=== PATIENT | male | born 1985 | race Hispanic/Latino ===

== ENCOUNTER 2022-05-13 13:05 | Inpatient (IN) | payer OTHER ==
[~2022-05-13] VITALS: Ht 152.4 cm; Wt 59.0 kg
[2022-05-13 13:44] LABS: BASOPHILS % (AUTO) 0.4 % (0.0-5.0); EOSINOPHILS % (AUTO) 7.7 % (0.0-8.0); HEMATOCRIT 31.8 % (42-54); LYMPHOCYTES % (AUTO) 2.5 % (21.0-51.0); MEAN CORPUSCULAR HEMOGLOBIN 21.4 pg (27.0-33.0); MEAN CORPUSCULAR HGB CONC 30.5 g/dL (32.0-36.0); MEAN CORPUSCULAR VOLUME 70.2 fL (79-99); MONOCYTES % (AUTO) 2.3 % (3.0-13.0); NEUTROPHILS % (AUTO) 84.9 % (40.0-77.0); RED BLOOD CELL COUNT(AUTO) 4.53 MIL/uL (4.50-6.20); RED CELL DISTRIBUTION WIDTH 16.6 % (11.0-15.5); WHITE BLOOD COUNT (AUTO) 22.3 K/uL (4.8-10.8)
[2022-05-13 13:47] LABS: PLATELET COUNT (AUTO) 822 K/uL (130-400)
[2022-05-13 14:23] LABS: ALBUMIN 1.6 g/dL (3.5-5.0); CREATININE 0.7 mg/dL (0.5-1.5); POTASSIUM 3.7 mmol/L (3.5-5.1); TOTAL PROTEIN, SERUM 7.2 g/dL (6.0-8.3)
[2022-05-13] MEDS ORDERED: ZOSYN 3.375GM+NS 50ML 50 ML ONE (14:24)
[2022-05-13] MEDS ORDERED: 0.9%NACL 1000ML 1,000 ML IV ONE ×2 (14:24→14:30)
[2022-05-13] MEDS ORDERED: ZOSYN 3.375GM +NS 50ML IV ONE (14:30)
[2022-05-13 14:43] LABS: PLATELET MORPHOLOGY COMMENT INCREASED
[2022-05-13] MEDS ORDERED: ONDANSETRON 4MG INJ IVP PRN (15:00)
[2022-05-13] MEDS ORDERED: OSELTAMIVIR PHOSPHATE 75 MG CAP PO SCH (15:00)
[2022-05-13] MEDS: SOLU-MEDROL 125MG VIAL IVP SCH ×2 (15:36→20:36)
[2022-05-13 16:00] VITALS: BP 106/62
[2022-05-13 19:50] VITALS: BP 94/55
[2022-05-13 23:24] VITALS: BP 92/49
[2022-05-14] MEDS: 0.9%NACL 1000ML 1,000 ML IV SCH ×3 (01:00→21:00)
[2022-05-14] MEDS: SOLU-MEDROL 125MG VIAL IVP SCH ×4 (02:55→21:09)
[2022-05-14 03:40] VITALS: BP 102/57
[2022-05-14 08:00] VITALS: BP 90/68
[2022-05-14 11:05] VITALS: BP 99/58
[2022-05-14 15:05] VITALS: BP 109/71
[2022-05-14 20:00] VITALS: BP 114/64
== END 2022-05-15 01:28 | disposition short-term general hospital (02) | DRG 842 ==
LOC: EDH 13:05 → EDHIP 13:06 → 3BH 16:16
PROVIDERS: ADMIT Internal Medicine Hematology & Oncology; ATTEND Internal Medicine Hematology & Oncology
DX: C83.30 Diffuse large B-cell lymphoma, unspecified site (principal); Z20.822 Contact with and (suspected) exposure to COVID-19
CPT/HCPCS: 36415; 71045; 80053; 83605; 85025; 87040; 87635; 87804; G0378; J2543; J2930; J7030

== ENCOUNTER 2022-05-27 18:48 | Inpatient (IN) | payer OTHER ==
[~2022-05-27] VITALS: Ht 162.6 cm; Wt 55.6 kg
[2022-05-27] MEDS ORDERED: 0.9%NACL 1000ML 2,000 ML IV ONE (19:30)
[2022-05-27 20:00] LABS: BASOPHILS % (AUTO) 0.4 % (0.0-5.0); EOSINOPHILS % (AUTO) 4.8 % (0.0-8.0); HEMATOCRIT 26.6 % (42-54); LYMPHOCYTES % (AUTO) 6.5 % (21.0-51.0); MEAN CORPUSCULAR HEMOGLOBIN 22.5 pg (27.0-33.0); MEAN CORPUSCULAR HGB CONC 31.6 g/dL (32.0-36.0); MEAN CORPUSCULAR VOLUME 71.3 fL (79-99); MONOCYTES % (AUTO) 6.5 % (3.0-13.0); NEUTROPHILS % (AUTO) 81.4 % (40.0-77.0); PLATELET COUNT (AUTO) 486 K/uL (130-400); RED BLOOD CELL COUNT(AUTO) 3.73 MIL/uL (4.50-6.20); RED CELL DISTRIBUTION WIDTH 20.1 % (11.0-15.5); WHITE BLOOD COUNT (AUTO) 2.3 K/uL (4.8-10.8)
[2022-05-27 20:16] LABS: CREATININE 0.7 mg/dL (0.5-1.5); POTASSIUM 3.3 mmol/L (3.5-5.1)
[2022-05-27 20:20] LABS: ALBUMIN 1.8 g/dL (3.5-5.0); TOTAL PROTEIN, SERUM 6.1 g/dL (6.0-8.3)
[2022-05-27] MEDS ORDERED: CEFAZOLIN SODIUM 2 GM VIAL IVP SCH (20:30)
[2022-05-27] MEDS ORDERED: VANCOMYCIN 1G VIAL IVPB ONE (20:30)
[2022-05-27] MEDS ORDERED: CEFAZOLIN SODIUM 1 GM VIAL ONE (20:34)
[2022-05-27] MEDS ORDERED: KETOROLAC 30MG VIAL (30MG/ML) ONE (20:39)
[2022-05-27] MEDS ORDERED: VANCOMYCIN 1G/250ML KIT 250 ML IV ONE (21:00)
[2022-05-27] MEDS ORDERED: KETOROLAC 30MG VIAL (30MG/ML) IVP ONE (21:00)
[2022-05-27 21:17] LABS: BAND NEUTROPHILS % (MANUAL) 6 % (0-2); EOSINOPHILS % (MANUAL) 7 % (1-6); LYMPHOCYTES % (MANUAL) 4 % (22-44); MAN.DIFF COMMENT-IMPRESSION MANUAL DIFFERENTIAL; MONOCYTES % (MANUAL) 7 % (2-9); SEGMENTED NEUTROPHILS % 76 % (40-70)
[2022-05-27 21:18] LABS: PLATELET MORPHOLOGY COMMENT ADEQUATE
[2022-05-27 23:35] VITALS: BP 122/78
[2022-05-28] MEDS: 0.9%NACL 1000ML 1,000 ML IV SCH ×3 (00:51→20:56)
[2022-05-28 04:00] VITALS: BP 115/73
[2022-05-28] MEDS ORDERED: OMEP40CA21 PO (04:42)
[2022-05-28] MEDS ORDERED: PRED50TA2 PO (04:42)
[2022-05-28] MEDS: ZOSYN 3.375GM +NS 50ML IV SCH ×3 (05:12→20:57)
[2022-05-28] MEDS: ACETAMINOPHEN 325 MG TAB PO PRN ×2 (05:19→11:52)
[2022-05-28 08:00] VITALS: BP 106/71
[2022-05-28 12:00] VITALS: BP 108/77
[2022-05-28] MEDS ORDERED: TBO-FILGRASTIM 480 MCG/0.8 ML ML SQ SCH (12:30)
[2022-05-28 13:02] LABS: HEMATOCRIT 27.3 % (42-54); MEAN CORPUSCULAR HEMOGLOBIN 22.3 pg (27.0-33.0); MEAN CORPUSCULAR HGB CONC 30.8 g/dL (32.0-36.0); MEAN CORPUSCULAR VOLUME 72.6 fL (79-99); PLATELET COUNT (AUTO) 542 K/uL (130-400); RED BLOOD CELL COUNT(AUTO) 3.76 MIL/uL (4.50-6.20); RED CELL DISTRIBUTION WIDTH 20.5 % (11.0-15.5); WHITE BLOOD COUNT (AUTO) 1.7 K/uL (4.8-10.8)
[2022-05-28 13:51] LABS: EOSINOPHILS % (MANUAL) 10 % (1-6); LYMPHOCYTES % (MANUAL) 21 % (22-44); MAN.DIFF COMMENT-IMPRESSION MANUAL DIFFERENTIAL; MONOCYTES % (MANUAL) 10 % (2-9); SEGMENTED NEUTROPHILS % 59 % (40-70)
[2022-05-28 13:52] LABS: PLATELET MORPHOLOGY COMMENT INCREASED
[2022-05-28] MEDS: HYDROCODONE/ACETAMINOPHEN 5/325 MG TAB PO PRN (14:55)
[2022-05-28 16:00] VITALS: BP 96/61
[2022-05-28 20:16] VITALS: BP 132/77
[2022-05-28] MEDS ORDERED: VANCOMYCIN 1G/250ML KIT 250 ML IV SCH (22:00)
[2022-05-28] MEDS ORDERED: VANCOMYCIN KIT 1 GM/250 ML IV.KIT IV SCH (22:00)
[2022-05-29] VITALS: BP 96/54
[2022-05-29] MEDS: HYDROCODONE/ACETAMINOPHEN 5/325 MG TAB PO PRN (00:03)
[2022-05-29] MEDS: MORPHINE 2 MG SYG IVP PRN ×4 (00:26→14:03)
[2022-05-29 02:32] LABS: APPEARANCE,URINE CLEAR (CLEAR); BILIRUBIN,URINE NEGATIVE (NEGATIVE); COLOR,URINE COLORLESS (YELLOW); GLUCOSE, URINE (UA) NEGATIVE (NEGATIVE); KETONES,URINE NEGATIVE (NEGATIVE); LEUKOCYTE ESTERASE ,URINE NEGATIVE Leu/uL (NEGATIVE); NITRATE,URINE NEGATIVE (NEGATIVE); OCCULT BLOOD,URINE NEGATIVE (NEGATIVE); PH,URINE 7.5 (5.0-8.0); PROTEIN,URINE NEGATIVE (NEGATIVE); UROBILINOGEN,URINE 0.2 mg/dL (0.2-1.0)
[2022-05-29 04:00] VITALS: BP 104/56
[2022-05-29] MEDS: ZOSYN 3.375GM +NS 50ML IV SCH ×2 (04:41→14:03)
[2022-05-29] MEDS: 0.9%NACL 1000ML 1,000 ML IV SCH ×2 (06:00→16:00)
[2022-05-29 08:00] VITALS: BP 101/54
[2022-05-29 12:00] VITALS: BP 91/56
[2022-05-29 16:00] VITALS: BP 95/60
[2022-05-29] MEDS ORDERED: HEPARIN PF LOCK 500 UNIT/5ML IV SCH (18:00)
== END 2022-05-29 18:35 | disposition home or self-care (01) | DRG 603 ==
LOC: EDH 18:48 → EDHIP 18:49 → INTOOBSV 18:49 → OBSVTOIN 18:49 → 3BH 23:15
PROVIDERS: ADMIT Internal Medicine Hematology & Oncology; ATTEND Internal Medicine Hematology & Oncology
DX: L03.113 Cellulitis of right upper limb (principal); C85.90 Non-Hodgkin lymphoma, unspecified, unspecified site; E86.9 Volume depletion, unspecified; D72.819 Decreased white blood cell count, unspecified; Z92.21 Personal history of antineoplastic chemotherapy
CPT/HCPCS: 36415; 71045; 76882; 80053; 81003; 83605; 85025; 87040; G0378; J0690; J1642; J1885; J2543; J3370